=== PATIENT | male | born 1990 | race Caucasian/White ===

== ENCOUNTER 2017-08-11 21:44 | Emergency (ER) | payer BC ==
[2017-08-11] MEDS ORDERED: Sodium Chloride 0.9% 10 ML Syringe FLUSH PRN (21:58)
[2017-08-11] MEDS ORDERED: Iopamidol 755 Mg/ML 100 ML Bottle IVPUSH ONE (21:58)
[2017-08-11] MEDS ORDERED: Iopamidol 755 MG/ML 50 ML Bottle IVPUSH ONE (21:58)
[2017-08-11] MEDS ORDERED: Sodium Chloride 0.9% 1,000 ML IV SCH (22:00)
[2017-08-11] MEDS ORDERED: Sodium Chloride 0.9% 100 ML IV SCH (22:00)
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
[2017-08-11] MEDS ORDERED: Metoclopramide 10 MG/2 ML SDV IVPUSH ONE (22:11)
[2017-08-11] MEDS ORDERED: diphenhydrAMINE 50 MG/ML SDV ONE (22:28)
[2017-08-11] MEDS ORDERED: diphenhydrAMINE 50 MG/ML SDV IVPUSH ONE (22:34)
[2017-08-11] MEDS ORDERED: Diphtheria,Pertussis(Acell),Tetanus Vaccine 0.5 ML SDV IM ONE (23:38)
[2017-08-11] MEDS ORDERED: Lidocaine 1% 10 ML MDV INJECT ONE (23:39)
--- NOTE | 2017-08-12 08:01 | CT ---
CT chest Technique: Multiple axial sections were obtained from above the lung apices inferiorly through the lung bases. Intravenous contrast was utilized. Findings: Small amount of high density material is seen within the esophagus presumably due to contrast. No contrast is seen outside the esophagus. Mediastinum and hilar regions are unremarkable. Small portion of the visualized upper abdominal structures appear within normal limits. Small hiatal hernia is seen. Lungs are clear without acute parenchymal change. No pleural effusions or pneumothorax are seen. Bone window settings were reviewed and shows no acute bony abnormality. Impression: 1. Nothing acute is seen on CT study of the chest. Other incidental findings as noted above. Diagnostic code #2 I agree with preliminary report from [facility], finalized at 08/12/17, 12:21 AM Central Time
--- NOTE | 2017-08-12 08:40 | CT ---
CT angiogram of neck Technique: Multiple axial sections were obtained through the neck. Intravenous contrast was utilized in the arterial phase. Findings: Vertebral arteries are opacified without evidence of dissection or occlusion. Common carotid arteries and internal carotid arteries are opacified without evidence of dissection or occlusion. Proximal portions of the external carotid arteries appear within normal limits. Subcutaneous soft tissue swelling is noted within the lower left face. Small amount of subcutaneous air compatible with skin injury is seen within the lateral left base. No additional soft tissue abnormalities are seen. Disc space narrowing and posterior and anterior osteophytes are noted at C5-C6 and C6-C7. Impression: 1. Soft tissue swelling within the subcutaneous fat of the left face as well as skin injury and subcutaneous air within the left face. 2. No vascular abnormality is seen on CT angiogram of the neck. 3. Incidental degenerative change within the cervical spine. Diagnostic code #2 I agree with preliminary report from [facility], finalized at 08/12/17, 12:39 AM Central Time
--- NOTE | 2017-08-12 08:40 | CT ---
Head CT Technique: Multiple axial sections through the brain were obtained. Intravenous contrast was not utilized. Comparison: No prior intracranial imaging. Findings: Ventricles along with basal cisterns and sulci over the convexities are within normal limits for the patient's age. No abnormal parenchymal densities are seen. No evidence of intracranial hemorrhage. No midline shift or mass effect is seen. No discrete calvarial abnormality is seen on bone window settings. Incidental cerumen seen within the right external auditory canal. Impression: 1. Nothing acute is seen on noncontrast head CT exam. Diagnostic code #2 I agree with preliminary report from [facility], finalized at 08/11/17, 11:38 PM Central Time
--- NOTE | 2017-08-12 08:40 | CT ---
CT cervical spine Technique: Multiple axial sections were obtained from above C1 inferiorly to the bottom of T2. Reconstructed sagittal and coronal images were reviewed. Comparison: No prior cervical spine imaging. Findings: Moderate disc space narrowing noted at C5-C6 and C6-C7 with posterior osteophytes seen at both these levels as well as smaller anterior osteophytes. There is posterior spurring causing mild to moderate central canal stenosis at both levels. Other disc spaces and vertebral body heights are maintained. No fracture is seen. No abnormal subluxation is seen. Impression: 1. Degenerative change at C5-C6 and C6-C7. 2. Nothing acute is seen on CT study of the cervical spine. Diagnostic code #2 I agree with preliminary report from [facility], finalized at 08/11/17, 11:43 PM Central Time
== END 2017-08-12 01:40 | disposition home or self-care (01) ==
LOC: JD.ED 21:44
DX: S11.91XA Laceration without foreign body of unspecified part of neck, initial encounter (principal); S01.332A Puncture wound without foreign body of left ear, initial encounter; S10.93XA Contusion of unspecified part of neck, initial encounter; H61.21 Impacted cerumen, right ear; W55.22XA Struck by cow, initial encounter
CPT/HCPCS: 12001; 70450; 70498; 71260; 72125; 80053; 85007; 85027; 85610; 85730; 90715; 96361; 96374; 96375; 99285; J1200; J2765; J7040; J7050; 36415